=== PATIENT | male | born 1985 | race Caucasian/White ===

== ENCOUNTER 2016-05-22 21:27 | Emergency (ER) ==
[~2016-05-22] VITALS: Ht 170.2 cm; Wt 73.2 kg
[2016-05-22 21:32] VITALS: BP 136/91; PULSE 92; TEMP 36.7; O2SAT 92; Ht 170.2 cm; Wt 73.2 kg
== END 2016-05-22 21:55 | disposition left against medical advice (07) ==
LOC: C.EDB 21:28
DX: T18.128A Food in esophagus causing other injury, initial encounter (principal); X58.XXXA Exposure to other specified factors, initial encounter